=== PATIENT | female | born 1965 | race African-American/Black ===

== ENCOUNTER 2017-11-15 11:44 | Observation (INO) | payer MEDICAID, OTHER ==
[2017-11-15] MEDS ORDERED: DEXAMETHASONE 4 MG TABLET PO ONE (12:30)
[2017-11-15] MEDS ORDERED: IPRATROPIUM/ALBUTEROL 0.5-2.5 MG/3 ML AMPUL NEB ONE (12:31)
--- NOTE | 2017-11-15 12:33 | ER Document Report ---
ED Respiratory Problem - General Chief Complaint: Shortness Of Breath Stated Complaint: COUGH/SHORTNESS OF BREATH Time Seen by Provider: 11/15/17 12:17 Notes: The patient is a 52-year-old female, past medical history asthma, COPD, presents with 6 days of a cough that has now become productive. She is also having diffuse chest pain when she coughs. She is trying her albuterol inhaler without much relief of her symptoms. Her last prednisone use was several years ago. She denies leg swelling, nausea, vomiting, hemoptysis, fevers, body aches or back pain. TRAVEL OUTSIDE OF THE [place] IN LAST 30 DAYS: No - Related Data Allergies/Adverse Reactions: No Known Allergies Allergy (Verified 11/15/17 11:47) Home Medications: symbicort, albuterol, prilosec, singulair, lisinopril, lasix, albuterol nebulizer, cpap Past Medical History - General Information source: Patient - Social History Smoking Status: Former Smoker Chew tobacco use (# tins/day): No Frequency of alcohol use: None Drug Abuse: None Family History: Reviewed & Not Pertinent Patient has suicidal ideation: No Patient has homicidal ideation: No - Past Medical History Cardiac Medical History: Reports: Hx Hypertension Pulmonary Medical History: Reports: Hx Asthma, Hx COPD Renal/ Medical History: Denies: Hx Peritoneal Dialysis GI Medical History: Reports: Hx Gastroesophageal Reflux Disease Past Surgical History: Reports: Hx Hysterectomy - Immunizations Hx Diphtheria, Pertussis, Tetanus Vaccination: Yes Review of Systems - Review of Systems Notes: REVIEW OF SYSTEMS: CONSTITUTIONAL: -fevers, -chills EENT: -eye pain, -difficulty swallowing, -nasal congestion CARDIOVASCULAR: -chest pain, -syncope. RESPIRATORY: +cough, +SOB GASTROINTESTINAL: -abdominal pain, -nausea, -vomiting, -diarrhea GENITOURINARY: -dysuria, -hematuria MUSCULOSKELETAL: -back pain, -neck pain SKIN: -rash or skin lesions. HEMATOLOGIC: -easy bruising or bleeding. LYMPHATIC: -swollen, enlarged glands. NEUROLOGICAL: -altered mental status or loss of consciousness, -headache, - neurologic symptoms PSYCHIATRIC: -anxiety, -depression. ALL OTHER SYSTEMS REVIEWED AND NEGATIVE. Physical Exam - Vital signs Vitals: Temp Pulse Resp BP Pulse Ox 98.6 F 80 22 H 146/83 H 95 11/15/17 11:51 11/15/17 11:51 11/15/17 11:51 11/15/17 11:51 11/15/17 11:51 - Notes Notes: PHYSICAL EXAMINATION: GENERAL: Well-appearing, well-nourished and in no acute distress. HEAD: Atraumatic, normocephalic. EYES: Pupils equal round and reactive to light, extraocular movements intact, sclera anicteric, conjunctiva are normal. ENT: nares patent, oropharynx clear without exudates. Moist mucous membranes. NECK: Normal range of motion, supple without lymphadenopathy LUNGS: No respiratory distress, end-expiratory wheezing and rales up to mid- lungs. HEART: Regular rate and rhythm without murmurs ABDOMEN: Soft, nontender, normoactive bowel sounds. No guarding, no rebound. No masses appreciated. EXTREMITIES: Normal range of motion, no pitting or edema. No cyanosis. NEUROLOGICAL: Cranial nerves grossly intact. Normal speech, normal gait. Normal sensory and motor exams. PSYCH: Normal mood, normal affect. SKIN: Warm, Dry, normal turgor, no rashes or lesions noted. Course - Re-evaluation Re-evalutation: Pt with evidence of pulmonary vascular congestion. She remains satting 90% after duonebs and she does not have oxygen at home. Will move patient to the main ER for further evaluation and treatment. Blood work sent and will hold off on starting Lasix until potassium is back. I have greeted and performed a rapid initial assessment of this patient. A comprehensive ED assessment and evaluation of the patient, analysis of test results and completion of the medical decision making process will be conducted by additional ED providers. - Vital Signs Vital signs: Temp Pulse Resp BP Pulse Ox 98.6 F 80 22 H 146/83 H 95 11/15/17 11:51 11/15/17 11:51 11/15/17 11:51 11/15/17 11:51 11/15/17 11:51 - Laboratory Result Diagrams: 11/15/17 13:49 11/15/17 13:49
--- NOTE | 2017-11-15 13:19 | RADIOLOGY REPORT (SQ) ---
EXAM DESCRIPTION: CHEST 2 VIEWS COMPLETED DATE/TIME: 11/15/2017 1:06 pm REASON FOR STUDY: productive cough COMPARISON: March 2016 EXAM PARAMETERS: NUMBER OF VIEWS: two views TECHNIQUE: Digital Frontal and Lateral radiographic views of the chest acquired. RADIATION DOSE: NA LIMITATIONS: none FINDINGS: LUNGS AND PLEURA: No opacities, masses or pneumothorax. No pleural effusion. MEDIASTINUM AND HILAR STRUCTURES: No masses or contour abnormalities. HEART AND VASCULAR STRUCTURES: Cardiac silhouette is enlarged. Tortuous thoracic aorta is again iden tified. There is pulmonary vascular congestion BONES: No acute findings. HARDWARE: Degenerative changes are again identified in the thoracic spine OTHER: No other significant finding. IMPRESSION: Cardiomegaly with pulmonary vascular congestion. No acute consolidations or pleural eff usions are identified. Other findings as noted above TECHNICAL DOCUMENTATION: JOB ID: [id number]- All Rights Reserved Reading location - IP/workstation name: [email or web address]
--- NOTE | 2017-11-15 14:05 | ER Document Report ---
ED General - General Chief Complaint: Shortness Of Breath Stated Complaint: COUGH/SHORTNESS OF BREATH Time Seen by Provider: 11/15/17 12:17 Mode of Arrival: Ambulatory Information source: Patient TRAVEL OUTSIDE OF THE [place] IN LAST 30 DAYS: No - HPI Notes: 52-year-old female history of COPD, asthma presents today with complaints of a productive cough and SOB for the last 6 days. Worse with time, nothing makes better. Patient has been using her Ventolin inhaler without wheeze. Patient was concerned about pneumonia. Eating and drinking without issues. Denies fevers, chills, chest pain,palpitations, nausea, vomiting, diarrhea, abdominal pain, hematuria,blurred vision, double vision, loss of vision, speech changes, LH, dizziness, syncope, headaches, neck pain, weakness, bowel or bladder dysfunction, saddle anesthesia, numbness or tingling in bilateral upper or lower extremities equally, muscle paralysis, weakness in bilateral upper or lower extremities equally or rash. Denies IV drug use. - Related Data Allergies/Adverse Reactions: No Known Allergies Allergy (Verified 11/15/17 11:47) Home Medications: symbicort, albuterol, prilosec, singulair, lisinopril, lasix, albuterol nebulizer, cpap Past Medical History - General Information source: Patient - Social History Smoking Status: Former Smoker Chew tobacco use (# tins/day): No Frequency of alcohol use: None Drug Abuse: None Family History: Reviewed & Not Pertinent Patient has suicidal ideation: No Patient has homicidal ideation: No - Past Medical History Cardiac Medical History: Reports: Hx Hypertension Pulmonary Medical History: Reports: Hx Asthma, Hx COPD Renal/ Medical History: Denies: Hx Peritoneal Dialysis GI Medical History: Reports: Hx Gastroesophageal Reflux Disease Past Surgical History: Reports: Hx Hysterectomy - Immunizations Hx Diphtheria, Pertussis, Tetanus Vaccination: Yes Review of Systems - Review of Systems Constitutional: No symptoms reported EENT: No symptoms reported Cardiovascular: No symptoms reported Respiratory: See HPI Gastrointestinal: No symptoms reported Genitourinary: No symptoms reported Female Genitourinary: No symptoms reported Musculoskeletal: No symptoms reported Skin: No symptoms reported Hematologic/Lymphatic: No symptoms reported Neurological/Psychological: No symptoms reported Physical Exam - Vital signs Vitals: Temp Pulse Resp BP Pulse Ox 98.6 F 80 22 H 146/83 H 95 11/15/17 11:51 11/15/17 11:51 11/15/17 11:51 11/15/17 11:51 11/15/17 11:51 - Notes Notes: PHYSICAL EXAMINATION: GENERAL: Well-appearing, well-nourished and in no acute distress. HEAD: Atraumatic, normocephalic. EYES: Pupils equal round and reactive to light, extraocular movements intact, conjunctiva are normal. ENT: Nares patent, oropharynx clear without exudates. Moist mucous membranes. NECK: Normal range of motion, supple without lymphadenopathy LUNGS: Breath sounds clear to auscultation bilaterally and equal. Noted end expiratory wheeze mid lung HEART: Regular rate and rhythm without murmurs ABDOMEN: Soft, nontender, nondistended abdomen. No guarding, no rebound. No masses appreciated. Female : deferred Musculoskeletal: Normal range of motion, no pitting or edema. No cyanosis. NEUROLOGICAL: Cranial nerves grossly intact. Normal speech, normal gait. Normal sensory, motor exams PSYCH: Normal mood, normal affect. SKIN: Warm, Dry, normal turgor, no rashes or lesions noted. Course - Re-evaluation Re-evalutation: 11/15/17 16:00 52-year-old female with a history of COPD presents for productive cough, afebrile, no distress, patient is slightly tachypneic. CBC negative for leukocytosis or anemia. CMP negative for hepatic or renal dysfunction disease, potassium 3.8, no electrolyte disturbances. Chest x-ray does show venous congestion without infiltrates. Patient takes Lasix 20 mg a day as well as lisinopril 20 mg a day, start taking his back in 2005 for hypertension. Patient given duo nebs without partial resolution wheezing. BNP 71. with potassium being 3.8, will give patient 40 mg IVP of Lasix. Discussed clinical, laboratory and diagnostic findings with hospitalist Dr. Kalpesh Bates, hospitalist on-call at 1430 for admission to telemetry fo symptomatic congestive heart failure as well as COPD exacerbation, will admit for diuresis and observation. Verbal instructions given a the bedside and opportunity for questions given. - Vital Signs Vital signs: Temp Pulse Resp BP Pulse Ox 98.6 F 80 29 H 146/83 H 96 11/15/17 11:51 11/15/17 11:51 11/15/17 15:43 11/15/17 11:51 11/15/17 15:43 - Laboratory Result Diagrams: 11/15/17 13:49 11/15/17 13:49 Laboratory results interpreted by me: 11/15/17 13:49 Sodium 146.0 H Carbon Dioxide 33 H Discharge - Discharge Clinical Impression: Pulmonary vascular congestion, COPD exacerbation Condition: Good Disposition: ADMITTED INPATIENT Admitting Provider: Hospitalist - Dr. Posey Onime Unit Admitted: Telemetry
[2017-11-15 14:13] LABS: ABSOLUTE EOSINOPHILS # (AUTO) 0.1 10^3/uL (0.0-0.6); ABSOLUTE LYMPHOCYTES (AUTO) 1.3 10^3/uL (0.5-4.7); ABSOLUTE MONOCYTES (AUTO) 0.9 10^3/uL (0.1-1.4); ABSOLUTE NEUT (AUTO) 5.1 10^3/uL (1.7-8.2); BASOPHILS % (AUTO) 0.6 % (0-2); EOSINOPHILS % (AUTO) 1.5 % (0-6); HEMATOCRIT 39.6 % (36.0-47.0); HEMOGLOBIN 13.4 g/dL (12.0-15.5); LYMPHOCYTES % (AUTO) 17.8 % (13-45); MEAN CORPUSCULAR HEMOGLOBIN 31.4 pg (27.0-33.4); MEAN CORPUSCULAR HGB CONC 33.7 g/dL (32.0-36.0); MEAN CORPUSCULAR VOLUME 93 fl (80-97); MONOCYTES % (AUTO) 11.7 % (3-13); PLATELET COUNT 191 10^3/uL (150-450); RED BLOOD COUNT 4.26 10^6/uL (3.72-5.28); RED CELL DISTRIBUTION WIDTH 13.8 % (11.5-14.0); SEGMENTED NEUTROPHILS % (AUTO) 68.4 % (42-78); TOTAL CELLS COUNTED % (AUTO) 100 %; WHITE BLOOD COUNT 7.5 10^3/uL (4.0-10.5)
[2017-11-15 14:29] LABS: ALANINE AMINOTRANSFERASE 39 U/L (9-52); ALBUMIN 3.9 g/dL (3.5-5.0); ALKALINE PHOSPHATASE 99 U/L (38-126); ANION GAP 11 (5-19); ASPARTATE AMINO TRANSFERASE 33 U/L (14-36); BILIRUBIN,DIRECT 0.3 mg/dL (0.0-0.4); BILIRUBIN,TOTAL 0.8 mg/dL (0.2-1.3); BLOOD UREA NITROGEN 8 mg/dL (7-20); CALCIUM 9.2 mg/dL (8.4-10.2); CARBON DIOXIDE 33 mmol/L (22-30); CHLORIDE 102 mmol/L (98-107); CREATINE KINASE 134 U/L (30-135); GLUCOSE 101 mg/dL (75-110); POTASSIUM 3.8 mmol/L (3.6-5.0); TOTAL PROTEIN 7.5 g/dL (6.3-8.2)
[2017-11-15] MEDS ORDERED: FUROSEMIDE INJ/PF 40 MG/4 ML SDV IV ONE (14:30)
--- NOTE | 2017-11-15 14:30 | EKG REPORT ---
SEVERITY:- NORMAL ECG - SINUS RHYTHM : Confirmed by: Richard Le 15-Nov-2017 14:29:13
[2017-11-15] MEDS ORDERED: IPRATROPIUM/ALBUTEROL 0.5-2.5 MG/3 ML AMPUL NEB PRN (16:30)
[2017-11-15] MEDS: FUROSEMIDE 40 MG TABLET PO SCH (17:33)
[2017-11-15] MEDS: PREDNISONE 20 MG TABLET PO SCH (17:36)
[2017-11-16 06:06] LABS: HEMOGLOBIN 13.3 g/dL (12.0-15.5); MEAN CORPUSCULAR HEMOGLOBIN 30.8 pg (27.0-33.4); MEAN CORPUSCULAR HGB CONC 33.2 g/dL (32.0-36.0); MEAN CORPUSCULAR VOLUME 93 fl (80-97); PLATELET COUNT 199 10^3/uL (150-450); RED BLOOD COUNT 4.32 10^6/uL (3.72-5.28); RED CELL DISTRIBUTION WIDTH 13.6 % (11.5-14.0); WHITE BLOOD COUNT 10.9 10^3/uL (4.0-10.5)
[2017-11-16 06:19] LABS: ANION GAP 12 (5-19); BLOOD UREA NITROGEN 11 mg/dL (7-20); CALCIUM 9.7 mg/dL (8.4-10.2); CARBON DIOXIDE 30 mmol/L (22-30); CHLORIDE 100 mmol/L (98-107); GLUCOSE 136 mg/dL (75-110); POTASSIUM 4.1 mmol/L (3.6-5.0); SODIUM 141.5 mmol/L (137-145)
[2017-11-16] MEDS: ENOXAPARIN SODIUM INJ 40 MG/0.4 ML DISP.SYRIN SUBCUT SCH (09:07)
[2017-11-16] MEDS: PREDNISONE 20 MG TABLET PO SCH (09:07)
[2017-11-16] MEDS: FUROSEMIDE 40 MG TABLET PO SCH ×2 (09:08→18:06)
[2017-11-16] MEDS ORDERED: LISINOPRIL 10 MG TABLET PO ONE ×2 (12:15→16:00)
[2017-11-16] MEDS ORDERED: ALBUTEROL SULFATE HFA (90 MCG/PUFF) 200 PUFF/8.5 GM MDI IH PRN (15:33)
--- NOTE | 2017-11-16 15:33 | PDOC PROGRESS REPORT ---
Subjective Progress Note for:: 11/16/17 Subjective:: Feeling better, breathing improving. No chest pain or palpitations, no fever or chills, no nausea or vomiting. Has had echo done, result pending. Reason For Visit: ASTHMA EXACERBATION Physical Exam Vital Signs: Temp Pulse Resp BP Pulse Ox 98.8 F 81 18 117/70 94 11/16/17 11:24 11/16/17 11:24 11/16/17 11:24 11/16/17 11:24 11/16/17 11:24 Intake & Output 11/15/17 11/16/17 11/17/17 06:59 06:59 06:59 Intake Total 650 Balance 650 Weight 146.3 kg GEN: NAD, well-developed, well-nourished CV: RRR, NL S1S2 LUNGS: CTA bilaterally ABDOMEN Soft, NT, +BS EXTERMITIES: No e/c/c NEURO: Alert, oriented 3, nonfocal Results Laboratory Results: 11/16/17 05:30 11/16/17 05:30 11/16/17 11/16/17 05:30 05:30 WBC 10.9 H RBC 4.32 Hgb 13.3 Hct 40.0 MCV 93 MCH 30.8 MCHC 33.2 RDW 13.6 Plt Count 199 Sodium 141.5 Potassium 4.1 Chloride 100 Carbon Dioxide 30 Anion Gap 12 BUN 11 Creatinine 0.62 Est GFR ( Amer) > 60 Est GFR (Non-Af Amer) > 60 Glucose 136 H Calcium 9.7 Impressions: Chest X-Ray 11/15/17 12:31 IMPRESSION: Cardiomegaly with pulmonary vascular congestion. No acute consolidations or pleural effusions are identified. Other findings as noted above Assessment & Plan - Diagnosis (1) Acute asthma flare Is this a current diagnosis for this admission?: Yes Plan: We will treat with nebulizer, O2 as needed. Reduce prednisone 40 mg to daily. (2) COPD exacerbation Is this a current diagnosis for this admission?: Yes Plan: As in asthma (3) Pulmonary vascular congestion Is this a current diagnosis for this admission?: Yes Plan: We will continue with Lasix, O2. Follow-up result of echocardiogram. (4) Hypertension Is this a current diagnosis for this admission?: Yes Plan: Continue home medications. Continue to monitor.
[2017-11-16] MEDS ORDERED: (PENDING PHARMACY ID) (Lisinopril [Prinivil] 20 MG) PO SCH (15:45)
[2017-11-16] MEDS ORDERED: MONTELUKAST SODIUM 10 MG TABLET PO SCH ×2 (16:00→22:00)
[2017-11-16] MEDS: BUDESONIDE/FORMOTEROL 160-4.5 MCG 60 PUFF/6 GM MDI IH SCH (18:06)
[2017-11-16] MEDS: LANSOPRAZOLE 30 MG TAB.RAP.DR PO SCH (18:06)
--- NOTE | 2017-11-16 21:11 | XCELERA REPORT ---
[address] [address] Transthoracic Echocardiogram Report Name: RICHARD HAN Age: 52 yrs Gender: Female : 1965 Patient Status: Inpatient Patient Location: [address] [place] [address] Study Date: 11/16/2017 11:00 AM Height: 65 in Weight: 322 lb BSA: 2.4 m2 Procedure: A complete two-dimensional transthoracic echocardiogram was performed (2D, M-mode, spectral and color flow Doppler). The study was technically difficult with many images being suboptimal in quality. Reason For Study: SOB, Pulmonory edema Ordering Physician: LAWRENCE CHRISTENSEN Performed By: Shanika Connolly Interpretation Summary The left ventricular ejection fraction is preserved. Consider additional methods to assess LVEF such as MUGA scan, CTA heart, cardiac MRI, NARDA, etc. if clinically indicated. Doppler measurements suggest pseudonormalized left ventricular relaxation, which is associated with grade II/IV or mild to moderate diastolic dysfunction The left ventricle is grossly normal size. There is mild concentric left ventricular hypertrophy. Regional wall motion abnormalities cannot be excluded due to limited visualization. The right ventricular systolic function is normal. Borderline right ventricular enlargement. Borderline right atrial enlargement. Borderline left atrial enlargement. There is no mitral valve stenosis. There is a trace amount of mitral regurgitation There is no aortic valve stenosis No aortic regurgitation is present. There is a trace or physiologic amount of tricuspid regurgitation Tricuspid regurgitation jet envelope not well defined to measure RV systolic pressure accurately. The aortic root is not well visualized but is probably normal size. The inferior vena cava was not well visualized There is no pericardial effusion. MMode/2D Measurements & Calculations RVDd: 2.4 cm LVIDd: 5.5 cm FS: 35.6 % Ao root diam: 3.1 cm IVSd: 1.1 cm LVIDs: 3.6 cm EDV(Teich): 149.1 ml LVPWd: 1.1 cm ESV(Teich): 53.0 ml Ao root area: 7.8 cm2 EF(Teich): 64.4 % LA dimension: 3.7 cm Doppler Measurements & Calculations MV E max demetra: MV P1/2t max demetra: Ao V2 max: LV V1 max P.3 cm/sec 53.8 cm/sec 147.4 cm/sec 6.8 mmHg MV A max demetra: MV P1/2t: 73.9 msec Ao max PG: LV V1 max: 63.7 cm/sec 8.7 mmHg 130.8 cm/sec MV E/A: 0.82 MVA(P1/2t): 3.0 cm2 MV dec slope: 213.3 cm/sec2 MV dec time: 0.23 sec PA V2 max: TR max demetra: 67.1 cm/sec 222.6 cm/sec PA max PG: TR max P.8 mmHg 1.8 mmHg Left Ventricle The left ventricle is grossly normal size. There is mild concentric left ventricular hypertrophy. The left ventricular ejection fraction is preserved. Consider additional methods to assess LVEF such as MUGA scan, CTA heart, cardiac MRI, NARDA, etc. if clinically indicated. Doppler measurements suggest pseudonormalized left ventricular relaxation, which is associated with grade II/IV or mild to moderate diastolic dysfunction. Regional wall motion abnormalities cannot be excluded due to limited visualization. Right Ventricle Borderline right ventricular enlargement. The right ventricular systolic function is normal. Atria Borderline right atrial enlargement. Borderline left atrial enlargement. Interarterial septum not well visualized and not well dopplered. Cannot comment on ASD/PFO presence. Mitral Valve The mitral valve is not well visualized. There is no mitral valve stenosis. There is a trace amount of mitral regurgitation. Aortic Valve The aortic valve is not well visualized secondary to technical limitations. There is no aortic valve stenosis. No aortic regurgitation is present. Tricuspid Valve The tricuspid valve is not well visualized secondary to technical limitations. There is no tricuspid stenosis. There is a trace or physiologic amount of tricuspid regurgitation. Tricuspid regurgitation jet envelope not well defined to measure RV systolic pressure accurately. Pulmonic Valve The pulmonic valve is not well visualized. Great Vessels The aortic root is not well visualized but is probably normal size. The inferior vena cava was not well visualized. Effusions There is no pericardial effusion. : LAWRENCE CHRISTENSEN > Richard Le
[2017-11-17] MEDS: LANSOPRAZOLE 30 MG TAB.RAP.DR PO SCH (05:15)
[2017-11-17] MEDS: FUROSEMIDE 40 MG TABLET PO SCH (09:43)
[2017-11-17] MEDS: ENOXAPARIN SODIUM INJ 40 MG/0.4 ML DISP.SYRIN SUBCUT SCH (09:44)
[2017-11-17] MEDS: BUDESONIDE/FORMOTEROL 160-4.5 MCG 60 PUFF/6 GM MDI IH SCH (09:45)
[2017-11-17] MEDS ORDERED: LISINOPRIL 10 MG TABLET PO SCH ×2 (10:00)
[2017-11-17] MEDS ORDERED: PREDNISONE 20 MG TABLET PO SCH (10:00)
[2017-11-17 13:32] VITALS: BP 103/53
--- NOTE | 2017-11-17 13:39 | Physician Advisory Note ---
Physician Advisor ProgressNote .: Pursuant to the plan for Jeremiah Rehman, I have reviewed the medical record for this patient. Physician Advisor Statement: Please consider documenting, if you agree: 1. "Chronic Diastolic CHF" - or "Acute on chronic Diastolic CHF, evidenced by _ " - Structural heart abnormalities of CHF, without having ever caused any s/s, = "[chronic] CHF Stage B" in current terminology - CXR shows vasc congestion, cardiomegaly, ECHO shows diastolic dysfunction level 2/4. - ED documents productive cough, SOB, wheezing, tachypnea. H&P is not currently available for review. 2. "obesity with BMI 54" 3. "Mild Acute hypernatremia, suspect due to " 4. H&P STatus: Medicaid pt w/asthma/COPD exac & possible acute diast CHF, with recurrent tachypea & tachycardia on 2nd day of hospitalization. Attending concerned for possible CHF, giving bid Lasix & checking ECHO. Appropriately brought in as Obs initially, but appropriate for change to Inpatient status as of 11/16. Thanks! CK
--- NOTE | 2017-12-09 09:05 | PDOC H&P ---
History of Present Illness Admission Date/PCP: 11/15/17 15:14 DEMARIO DUMONT DO Patient complains of: Cough, shortness of breath History of Present Illness: RICHARD HAN is a 52 year old female with history of hypertension, asthma, on Lasix but cannot tell me she has CHF, who presented to the ED today with 6 days worsening shortness of breath and cough that is intermittently productive of frothy sputum. No chest pain. No palpitations, no nausea vomiting. She has orthopnea, but no PND. Evaluation in the ED significant for wheezing for which patient was treated with nebs. Chest x-ray revealed cardiomegaly with pulmonary vascular congestion. Patient referred to hospitalist service for further evaluation and management Past Medical History Cardiac Medical History: Reports: Hypertension Pulmonary Medical History: Reports: Asthma, Chronic Obstructive Pulmonary Disease (COPD) GI Medical History: Reports: Gastroesophageal Reflux Disease Past Surgical History Past Surgical History: Reports: Hysterectomy Social History Smoking Status: Former Smoker Family History Family History: Reviewed & Not Pertinent Parental Family History Reviewed: Yes Children Family History Reviewed: Yes Sibling(s) Family History Reviewed.: Yes Medication/Allergy Home Medications: Albuterol Sulfate [Proair HFA Inhalation Aerosol 8.5 gm MDI] 2 puff IH ASDIR PRN 11/15/17 Budesonide/Formoterol Fumarate [Symbicort 160-4.5 Mcg Inhaler] 2 puff IH BID 08/04 Lisinopril [Prinivil] 20 mg PO DAILY 11/15/17 Montelukast Sodium [Singulair 10 mg Tablet] 10 mg PO DAILY 11/15/17 Omeprazole 40 mg PO BID 11/15/17 Furosemide [Lasix 40 mg Tablet] 40 mg PO BID #30 tablet 11/17/17 Prednisone [Deltasone 20 mg Tablet] 40 mg PO DAILY 3 Days tablet 11/17/17 Allergies/Adverse Reactions: No Known Allergies Allergy (Verified 11/15/17 11:47) Review of Systems Review of Systems: CONSTITUTIONAL : Fever, chills -- No; unexpalined fatigue -- No EENT: Denies eye, ear, throat, or mouth pain or symptoms. Denies nasal or sinus congestion or discharge. Denies throat, tongue, or mouth swelling or difficulty swallowing. CARDIOVASCULAR: Denies chest pain. No racing heart RESPIRATORY: As in HPI. GASTROINTESTINAL: Denies abdominal pain or distention. Denies nausea, vomiting , or diarrhea. No rectal bleeding. GENITOURINARY: Urinary symptoms -- no. MUSCULOSKELETAL: No acute weakness SKIN: Denies rash, lesions or sores. HEMATOLOGIC : Denies easy bruising or bleeding. LYMPHATIC: Denies swollen, enlarged glands. NEUROLOGICAL: New weakness, headaches, slured speach - No PSYCHIATRIC: Changes anxiety or stress, depression, suicidal ideation, or homicidal ideation -- No ALL OTHER SYSTEMS REVIEWED AND NEGATIVE. Physical Exam Vital Signs: Temp Pulse Resp BP Pulse Ox 98.6 F 80 29 H 146/83 H 96 11/15/17 11:51 11/15/17 11:51 11/15/17 15:43 11/15/17 11:51 11/15/17 15:43 GENERAL: Well-developed, no acute distress HEENT: Normocephalic/atraumatic NECK supple, no JVD CARDIOVASCULAR: RRR, normal S1-S2 LUNGS: Few expiratory wheezing and crackles bilaterally ABDOMEN: Soft, NT, NL bowel sounds EXTREMITIES: 1+ lower extremity edema, no clubbing clubbing or cyanosis NEUROLOGICAL: Alert, oriented x 3, nonfocal Results Laboratory Results: White blood cell 7.5 hemoglobin 30.4 platelets 191 sodium 146 potassium 3.8 BUN 8 creatinine 0.7, glucose 101 Impressions: Chest X-Ray 11/15/17 12:31 IMPRESSION: Cardiomegaly with pulmonary vascular congestion. No acute consolidations or pleural effusions are identified. Other findings as noted above Assessment & Plan - Diagnosis (1) Acute asthma flare Is this a current diagnosis for this admission?: Yes Plan: We will treat with nebulizer, O2 as needed, prednisone 40 mg twice daily. Monitor. (2) COPD exacerbation Is this a current diagnosis for this admission?: Yes Plan: As in asthma (3) Pulmonary vascular congestion Is this a current diagnosis for this admission?: Yes Plan: We will treat with Lasix, O2. Will check echocardiogram. Check serial troponins to rule out OR, of note is that patient has no chest pain. (4) Hypertension Is this a current diagnosis for this admission?: Yes Plan: Resume home medications. Monitor.
--- NOTE | 2017-12-09 09:05 | PDOC DISCHARGE SUMMARY ---
General - Admit/Disc Date/PCP Admission Date/Primary Care Provider: 11/15/17 15:14 DEMARIO DUMONT, DO Discharge Date: 11/17/17 - Discharge Diagnosis (1) Acute asthma flare Is this a current diagnosis for this admission?: Yes (2) COPD exacerbation Is this a current diagnosis for this admission?: Yes (3) Pulmonary vascular congestion Is this a current diagnosis for this admission?: Yes (4) Hypertension Is this a current diagnosis for this admission?: Yes - Additional Information Resuscitation Status: Full Code Discharge Diet: Cardiac Discharge Activity: Activity As Tolerated, Weigh Daily Prescriptions: Furosemide [Lasix 40 mg Tablet] 40 mg PO BID #30 tablet Prednisone [Deltasone 20 mg Tablet] 40 mg PO DAILY 3 Days tablet Home Medications: Albuterol Sulfate [Proair HFA Inhalation Aerosol 8.5 gm MDI] 2 puff IH ASDIR PRN 11/15/17 Budesonide/Formoterol Fumarate [Symbicort 160-4.5 Mcg Inhaler] 2 puff IH BID 08/04 Lisinopril [Prinivil] 20 mg PO DAILY 11/15/17 Montelukast Sodium [Singulair 10 mg Tablet] 10 mg PO DAILY 11/15/17 Omeprazole 40 mg PO BID 11/15/17 Furosemide [Lasix 40 mg Tablet] 40 mg PO BID #30 tablet 11/17/17 Prednisone [Deltasone 20 mg Tablet] 40 mg PO DAILY 3 Days tablet 11/17/17 History of Present Illness History of Present Illness: RICHARD HAN is a 52 year old female with history of hypertension, asthma, on Lasix but could not tell me if she has CHF, who presented to the ED with 6 days worsening shortness of breath and cough that was intermittently productive of frothy sputum. No chest pain. No palpitations, no nausea vomiting. She reported orthopnea, but no PND. Evaluation in the ED significant for wheezing for which patient was treated with nebs. Chest x-ray revealed cardiomegaly with pulmonary vascular congestion. Patient referred to hospitalist service for further evaluation and management Hospital Course Hospital Course: Patient was admitted and managed as follows: (1) Acute asthma flare Is this a current diagnosis for this admission?: Yes Plan: Treated with nebulizer, O2 as needed. she is significantly improved. D/c on short course prednisone 40 mg to daily. (2) COPD exacerbation Is this a current diagnosis for this admission?: Yes Plan: As in asthma (3) Pulmonary vascular congestion Is this a current diagnosis for this admission?: Yes Plan: We will continue with Lasix, O2. Echo result pending. PCP to f/u. (4) Hypertension Is this a current diagnosis for this admission?: Yes Plan: Continue home medications. Physical Exam Vital Signs: Temp Pulse Resp BP Pulse Ox 97.8 F 75 17 107/70 94 11/17/17 11:07 11/17/17 11:07 11/17/17 11:07 11/17/17 11:07 11/17/17 11:07 Intake & Output 11/16/17 11/17/17 11/18/17 06:59 06:59 06:59 Intake Total 650 2673 118 Balance 650 2673 118 Weight 146.3 kg 146.7 kg GEN: NAD, well-developed, well-nourished CV: RRR, NL S1S2 LUNGS: CTA bilaterally ABDOMEN Soft, NT, +BS EXTERMITIES: No e/c/c NEURO: Alert, oriented 3, nonfocal Results Laboratory Results: 11/16/17 05:30 11/16/17 05:30 Impressions: Chest X-Ray 11/15/17 12:31 IMPRESSION: Cardiomegaly with pulmonary vascular congestion. No acute consolidations or pleural effusions are identified. Other findings as noted above Qualifiers - * PATIENT BEING DISCHARGED WITH ANY OF THE FOLLOWING DIAGNOSIS: No
== END 2017-11-17 14:16 | disposition home or self-care (01) ==
LOC: ER 11:44 → EH 15:14 → INTOOBSV 15:14 → 3S 18:00
PROVIDERS: ADMIT Internal Medicine; ATTEND Internal Medicine
DX: J45.901 Unspecified asthma with (acute) exacerbation (principal); J44.1 Chronic obstructive pulmonary disease with (acute) exacerbation; R09.89 Other specified symptoms and signs involving the circulatory and respiratory systems; I10 Essential (primary) hypertension; R06.01 Orthopnea; K21.9 Gastro-esophageal reflux disease without esophagitis; Z79.899 Other long term (current) drug therapy; Z87.891 Personal history of nicotine dependence
CPT/HCPCS: 93005; 94640 ×2; 99285; 36415 ×2; 82550; 85025; 85027; 80048; 80053; 83880; 93306; 71046; 93010; 94660 ×2; G0378 ×4; J3490 ×12; J1940; J1650 ×2; J7512 ×3; J7620 ×2